=== PATIENT | male | born 1975 | race Two or more races ===

== ENCOUNTER 2022-10-11 17:27 | Outpatient (CLI) | payer BC ==
[2022-10-11 18:07] LABS: ALBUMIN 4.2 g/dL (3.2-5.5); ALBUMIN/GLOBULIN RATIO 1.1 (1.0-2.2); ALKALINE PHOSPHATASE 54 IU/L (42-121); ALT ALANINE AMINOTRANSFERASE 41 IU/L (10-60); AST ASPARTATE AMINOTRANSFERASE 33 IU/L (10-42); BILIRUBIN,TOTAL 0.7 mg/dL (0.2-1.0); BUN - BLOOD UREA NITROGEN 20 mg/dL (6-20); CALCIUM 9.2 mg/dL (8.5-10.3); CARBON DIOXIDE - CO2 28 mmol/L (21-32); CHLORIDE 101 mmol/L (101-111); CHOL/HDL RATIO 6.3 (<5.0); CHOLESTEROL 170 mg/dL; CREATININE 1.1 mg/dL (0.6-1.2); GFR - MDRD 71 (>89); GLUCOSE 91 mg/dL (70-100); HDL CHOLESTEROL 27 mg/dL; LDL CHOLESTEROL,CALCULATED 101 mg/dL; LDL/HDL RATIO 3.7 (<3.6); POTASSIUM 4.2 mmol/L (3.5-5.0); SODIUM 137 mmol/L (135-145); TOTAL PROTEIN 8.1 g/dL (6.7-8.2); TRIGLYCERIDES 210 mg/dL; VLDL CHOLESTEROL 42 mg/dL
[2022-10-11 21:54] LABS: ESTIMATED AVERAGE GLUCOSE 123 mg/dL (70-100); HEMOGLOBIN A1c% 5.9 % (4.27-6.07)
== END 2022-10-11 17:28 | disposition home or self-care (01) ==
LOC: LAB 17:27
DX: E78.5 Hyperlipidemia, unspecified (principal); R73.03 Prediabetes
CPT/HCPCS: 36415; 80053; 80061; 83036; 83721

== ENCOUNTER 2023-07-31 21:44 | Outpatient (CLI) | payer SELFPAY | END 2023-07-31 21:45 | disposition critical access hospital (66) | LOC: EMS 21:44 | DX: T63.441A Toxic effect of venom of bees, accidental (unintentional), initial encounter (principal); R09.89 Other specified symptoms and signs involving the circulatory and respiratory systems | CPT/HCPCS: A0425; A0429 ==

== ENCOUNTER 2023-07-31 22:22 | Emergency (ER) | payer SELFPAY ==
[2023-07-31] MEDS ORDERED: diphenhydrAMINE 25 MG CAPSULE PO STA (22:32)
[2023-07-31] MEDS ORDERED: FAMOTIDINE 20 MG TABLET PO STA (22:33)
[2023-07-31] MEDS ORDERED: CHERRY SYRUP 10 ML UDC PO ONE (22:33)
[2023-07-31] MEDS ORDERED: DEXAMETHASONE 10 MG/ML VIAL PO STA (22:33)
--- NOTE | 2023-07-31 23:09 | ED Physician Documentation ---
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 patient denies itching, chest tightness, soa, throat tightening, rash, dizziness, n/v or swelling at the site. he has not taken any other meds. PD PAST MEDICAL HISTORY - Past Medical History Past Medical History: No Cardiovascular: None Respiratory: None Neuro: None Endocrine/Autoimmune: None GI: None : None HEENT: None Psych: None Musculoskeletal: None Derm: None - Past Surgical History Past Surgical History: No - Present Medications Home Medications: Ambulatory Orders Medication Instructions Recorded Confirmed EPINEPHrine [Epinephrine] 0.3 mg IJ ONCE PRN #3 each 08/01/23 - Allergies Allergies/Adverse Reactions: Allergies Allergy/AdvReac Type Severity Reaction Status Date / Time bee venom protein (honey bee) Allergy Anaphylaxis Verified 07/31/23 22:36 Penicillins Allergy Unknown Verified 07/31/23 22:24 - Social History Does the pt smoke?: No Smoking Status: Never smoker Does the pt drink ETOH?: No Does the pt have substance abuse?: No - Immunizations Immunizations are current?: Yes PD ED PE NORMAL - Vitals Vital signs reviewed: Yes - General General: Alert and oriented X 3, No acute distress, Well developed/nourished - HEENT HEENT: Atraumatic, PERRL, EOMI - Neck Neck: Supple, no meningeal sign, Other (normal upper airway sounds on neck auscultation) - Cardiac Cardiac: RRR - Respiratory Respiratory: No respiratory distress, Clear bilaterally - Abdomen Abdomen: Non tender, Non distended - Derm Derm: Normal color, Warm and dry - Extremities Extremities: No deformity, Other (no swelling at bee sting site. no retained stinger) - Neuro Neuro: Alert and oriented X 3, No motor deficit, No sensory deficit Results - Vitals Vitals: Vital Signs - 24 hr 07/31/23 07/31/23 22:24 22:29 Temperature 36.8 C 36.6 C Heart Rate 86 86 Respiratory 16 19 Rate Blood Pressure 170/90 H 171/98 H O2 Saturation 94 100 Oxygen O2 Source Room air PD Medical Decision Making - ED course ED course: 48yM with pmh anaphylaxis to bee stings presents after bee sting and epipen ad ministration at 9pm. completely asymptomatic on arrival. benadryl, pepcid and steroids were given prophylactically. plan to observe for 4 hours from time of administration and dc at 2am if clinically stable. Departure - Departure Disposition: 01 Home, Self Care Clinical Impression: Bee sting Condition: Good Instructions: ED Allergic Reaction General Other Prescriptions: EPINEPHrine [Epinephrine] 0.3 mg IJ ONCE PRN #3 each PRN Reason: Anaphylaxis Comments: You were seen in the emergency department for bee sting and epi pen injection with subsequent monitoring. You did also get antiallergy medicine including benadryl, pepcid and decadron, a steroid. Please follow-up with your primary care provider and return to the emergency department if you have any new or worsening symptoms or other concerns. Forms: PCP List
[2023-08-01 01:05] VITALS: BP 155/98; O2SAT 99
== END 2023-08-01 00:59 | disposition home or self-care (01) ==
LOC: EDUNIT# → ED 22:22
DX: T63.441A Toxic effect of venom of bees, accidental (unintentional), initial encounter (principal)
CPT/HCPCS: 99282; 99283; A9270